=== PATIENT | female | born 1990 | race Caucasian/White ===

== ENCOUNTER 2020-12-04 17:52 | Emergency (ER) | payer OTHER ==
[~2020-12-04 17:52] MED LIST: VENTOLIN HFA IN18 GM INH
[2020-12-04 19:30] LABS: BASOPHIL 0.3 % (0-2); EOSINOPHIL 0 % (0-5); HCT 39.6 % (37.0-47.0); HGB 13.2 g/dl (12.5-16.0); MCH 30.1 pg (25.0-31.0); MCHC 33.3 g/dL (32.0-36.0); MCV 90.2 fL (78.0-100.0); MONOCYTE 7.8 % (0-12); MPV 10.2 fL (6.0-9.5); NEUTROPHIL 85.4 % (41-80); NRBC 0; PLT 292 K/uL (150-400); RBC 4.39 M/uL (4.20-5.40); RDW 12.5 % (11.5-14.0); WBC 17.4 K/uL (4.0-10.5)
[2020-12-04 19:34] LABS: BILIRUBIN NEGATIVE (NEGATIVE); BLOOD 1+ Ery/uL (NEGATIVE); CLARITY CLEAR (CLEAR); COLOR YELLOW (YELLOW); GLUCOSE (U) NORMAL (NORMAL); LEUKOCYTES 1+ Leu/uL (NEGATIVE); NITRITE NEGATIVE (NEGATIVE); PROTEIN 1+ mg/dL (NEGATIVE); SPECIFIC GRAVITY 1.015 (1.001-1.030); UROBILINOGEN 0.2 mg/dL (0.2-1.0)
[2020-12-04 19:42] LABS: BACTERIA 3+
[2020-12-04 19:43] LABS: SQUAMOUS EPITHELIAL CELLS >50
[2020-12-04 19:50] LABS: ALBUMIN 3.4 g/dL (3.4-5.0); BILIRUBIN - TOTAL 0.5 mg/dL (0.2-1.0); BUN/CREAT RATIO (CALC) 8.1 RATIO; CREATININE 0.74 mg/dL (0.51-0.95); GLOBULIN (CALCULATION) 4.1 g/dL; POTASSIUM 3.3 mmol/L (3.5-5.1); TOTAL PROTEIN 7.5 g/dL (6.4-8.2)
[2020-12-05] MEDS ORDERED: BACTRIM DS TAB1 EACH PO (03:45)
[2020-12-05] MEDS ORDERED: TRAMADOL HCL100 MG PO (03:46)
== END 2020-12-05 03:50 | disposition home or self-care (01) ==
LOC: FER 17:52
PROVIDERS: Emergency Medicine
DX: N12 Tubulo-interstitial nephritis, not specified as acute or chronic (principal)
CPT/HCPCS: 36415; 80053; 81001; 83605; 85025; 87040; 87077; 87186; J1170; J1885; J2405; J2543; J7030

== ENCOUNTER → 2021-12-01 | Day surgery (SDC) | payer OTHER ==
[~2021-12-01] VITALS: Ht 157.5 cm; Wt 86.2 kg
[~2021-12-01] MED LIST changes: +ALPRAZOLAM 1MG T1 MG PO; +BACTRIM DS TAB1 EACH PO; +BRIN20TA PO; +GLYCOPYRROLATE2 MG PO; +METFORMIN HCL500 M1 PO; +MOTRIN600 MG PO; +PROPRANOLOL HCL40 MG PO; +REXULTI1 MG PO; +TRAMADOL HCL100 MG PO; +VRAYLAR1.5 MG PO
[2021-12-01 10:07] LABS: HCG (URINE) SCREEN NEGATIVE (NEGATIVE)
[2021-12-01 10:25] LABS: BASOPHIL 0.6 % (0-2); EOSINOPHIL 2.3 % (0-5); HCT 44.8 % (37.0-47.0); HGB 15.4 g/dl (12.5-16.0); MCH 30.5 pg (25.0-31.0); MCHC 34.4 g/dL (32.0-36.0); MCV 88.7 fL (78.0-100.0); MPV 9.6 fL (6.0-9.5); NEUTROPHIL 74.8 % (41-80); NRBC 0; PLT 430 K/uL (150-400); RBC 5.05 M/uL (4.20-5.40); RDW 11.9 % (11.5-14.0); WBC 10.9 K/uL (4.0-10.5)
[2021-12-01 10:43] LABS: BILIRUBIN - TOTAL 0.5 mg/dL (0.2-1.0); BUN/CREAT RATIO (CALC) 13.2 RATIO; CREATININE 0.76 mg/dL (0.51-0.95); GLOBULIN (CALCULATION) 4.2 g/dL; POTASSIUM 3.6 mmol/L (3.5-5.1); TOTAL PROTEIN 8.2 g/dL (6.4-8.2)
== END | disposition home or self-care (01) ==
LOC: FAS 09:44
PROVIDERS: Oral & Maxillofacial Surgery
DX: K02.9 Dental caries, unspecified (principal); K04.7 Periapical abscess without sinus; F41.9 Anxiety disorder, unspecified; I10 Essential (primary) hypertension; J45.909 Unspecified asthma, uncomplicated; F17.200 Nicotine dependence, unspecified, uncomplicated; F43.10 Post-traumatic stress disorder, unspecified; Z88.2 Allergy status to sulfonamides; Z79.899 Other long term (current) drug therapy
CPT/HCPCS: 36415; 80053; 84703; 85025; J1100; J1170; J1885; J2250; J2405; J2704; J7120